=== PATIENT | female | born 1950 | race Caucasian/White ===

== ENCOUNTER → 2016-05-21 | Outpatient (CLI) | payer BC ==
[~2016-05-21] MED LIST: ADVAIR 250/28 DISKUS IH; BENADRYL 50MG C50 MG PO; CALCIUM CARBON500 M1 PO; CELEBREX 200MG200 MG PO; COLACE 100100 MG/CAP PO; CYMBALTA 60MG60 MG PO; DARVOCET A500 51 TAB PO; DIOVAN160 MG PO; HCTZ PO; LASIX; MICARDIS HCT; MOTRIN 800800 MG/TAB PO; MULTI VITAMINS1 TAB PO; MVI PO; NEURONTIN300 MG/CAP PO; PERCOCET 325 MG1 TA2 PO; PREMARIN .3MG0.3 MG PO; PRILOSEC 20MG20 MG PO; SINGULAIR 110 MG/TAB PO; SINGULAIR10 MG PO; VENTOLIN0.09 MG IH; VICODIN PO; ZYRTEC 10MG10 MG PO
== END ==
LOC: MC.RAD 10:12
DX: Z12.31 Encounter for screening mammogram for malignant neoplasm of breast (principal)

== ENCOUNTER → 2017-07-01 | Outpatient (CLI) | payer BC | LOC: MC.RAD 08:33 | DX: Z12.31 Encounter for screening mammogram for malignant neoplasm of breast (principal) ==

== ENCOUNTER → 2018-07-15 | Outpatient (CLI) | payer OTHER, BC | LOC: MC.RAD 07:13 | DX: Z12.31 Encounter for screening mammogram for malignant neoplasm of breast (principal) ==

== ENCOUNTER → 2019-01-27 | Outpatient (CLI) | payer OTHER, BC | LOC: COL.RAD 06:57 | DX: R90.82 White matter disease, unspecified (principal); R27.0 Ataxia, unspecified; R25.9 Unspecified abnormal involuntary movements; R20.0 Anesthesia of skin; R20.2 Paresthesia of skin; R41.89 Other symptoms and signs involving cognitive functions and awareness ==

== ENCOUNTER → 2019-09-28 | Outpatient (CLI) | payer BC | LOC: MC.RAD 14:51 | DX: Z12.31 Encounter for screening mammogram for malignant neoplasm of breast (principal) ==

== ENCOUNTER 2020-01-06 15:56 | Emergency (ER) | payer BC ==
[~2020-01-06] VITALS: Ht 167.6 cm; Wt 93.2 kg
[2020-01-06] MEDS ORDERED: SINEMET 25/101 UDTAB PO (16:41)
[2020-01-06] MEDS ORDERED: COZAAR 50MG50 MG/TAB PO (16:42)
[2020-01-06] MEDS ORDERED: ZOCOR 20MG20 MG PO (16:43)
[2020-01-06] MEDS ORDERED: LASIX 20MG TABL20 MG PO (16:43)
[2020-01-06] MEDS ORDERED: B COMPLEX #11 TA1 PO (16:44)
[2020-01-06] MEDS ORDERED: SINEQUAN 1010 MG/CAP PO (16:44)
[2020-01-06 17:30] VITALS: BP 132/74; PULSE 84; TEMP 97.6
== END 2020-01-06 17:33 | disposition home or self-care (01) ==
LOC: COL.ER 15:56
DX: S59.901A Unspecified injury of right elbow, initial encounter (principal); E78.5 Hyperlipidemia, unspecified; G20 Parkinson's disease; J45.909 Unspecified asthma, uncomplicated; I10 Essential (primary) hypertension; G89.29 Other chronic pain; Z88.2 Allergy status to sulfonamides; Z88.8 Allergy status to other drugs, medicaments and biological substances; Z88.6 Allergy status to analgesic agent; W01.0XXA Fall on same level from slipping, tripping and stumbling without subsequent striking against object, initial encounter; Y92.009 Unspecified place in unspecified non-institutional (private) residence as the place of occurrence of the external cause

== ENCOUNTER → 2020-04-16 | Outpatient (CLI) | payer BC ==
[~2020-04-16] MED LIST changes: +B COMPLEX #11 TA1 PO; +COZAAR 50MG50 MG/TAB PO; +LASIX 20MG TABL20 MG PO; +SINEMET 25/101 UDTAB PO; +SINEQUAN 1010 MG/CAP PO; +ZOCOR 20MG20 MG PO
== END ==
LOC: COL.VAS 13:00
DX: M79.89 Other specified soft tissue disorders (principal)

== ENCOUNTER → 2020-10-12 | Outpatient (CLI) | payer BC | LOC: MC.RAD 07:00 | DX: Z12.31 Encounter for screening mammogram for malignant neoplasm of breast (principal) ==

== ENCOUNTER → 2021-03-25 | Outpatient (CLI) | payer BC | LOC: COL.RAD 09:42 | DX: M47.816 Spondylosis without myelopathy or radiculopathy, lumbar region (principal); M48.061 Spinal stenosis, lumbar region without neurogenic claudication ==

== ENCOUNTER 2021-05-03 11:15 | Outpatient (RCR) | payer BC | END 2021-05-06 | disposition home or self-care (01) | LOC: MKS.ESL.PT | DX: M48.062 Spinal stenosis, lumbar region with neurogenic claudication (principal) ==

== ENCOUNTER → 2021-06-06 | Outpatient (RCR) | payer BC | END | disposition home or self-care (01) | LOC: MKS.ESL.PT → WSST 05-14 10:15 → MKS.ESL.PT 05-17 09:00 → WSST 06-04 10:30 → MKS.ESL.PT 15:00 | DX: M48.062 Spinal stenosis, lumbar region with neurogenic claudication (principal) ==

== ENCOUNTER → 2021-06-24 | Outpatient (CLI) | payer BC | LOC: COL.RAD 11:08 | DX: M47.26 Other spondylosis with radiculopathy, lumbar region (principal); M48.062 Spinal stenosis, lumbar region with neurogenic claudication; M41.80 Other forms of scoliosis, site unspecified; G95.9 Disease of spinal cord, unspecified; Z98.1 Arthrodesis status ==

== ENCOUNTER → 2021-12-02 | Outpatient (CLI) | payer BC | LOC: MC.RAD 06:58 | DX: Z12.31 Encounter for screening mammogram for malignant neoplasm of breast (principal) ==

== ENCOUNTER → 2024-01-07 | Outpatient (CLI) | payer BC | LOC: MC.RAD 08:52 | DX: Z12.31 Encounter for screening mammogram for malignant neoplasm of breast (principal) ==